=== PATIENT | female | born 1990 | race Native Hawaiian/Other Pacific Islander ===

== ENCOUNTER 2016-11-09 07:44 | Emergency (ER) | payer SELFPAY ==
[2016-11-09 08:08] VITALS: TEMP 98; O2SAT 99
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
[2016-11-09 08:38] VITALS: BP 122/71; PULSE 85; RESP 20
== END 2016-11-09 08:33 | disposition home or self-care (01) ==
LOC: ED 07:44
DX: F10.129 Alcohol abuse with intoxication, unspecified (principal)